=== PATIENT | female | born 1990 | race Caucasian/White ===

== ENCOUNTER 2016-05-27 09:55 | Emergency (ER) | payer MEDICAID ==
[2016-05-27 11:08] VITALS: BP 154/71
== END 2016-05-27 11:08 | disposition home or self-care (01) ==
LOC: ED 09:55
DX: L03.115 Cellulitis of right lower limb (principal); L30.4 Erythema intertrigo

== ENCOUNTER 2016-05-31 22:07 | Emergency (ER) | payer MEDICAID ==
[2016-06-01 00:10] VITALS: BP 168/121
== END 2016-06-01 00:10 | disposition left against medical advice (07) ==
LOC: ED 22:07
DX: Z53.21 Procedure and treatment not carried out due to patient leaving prior to being seen by health care provider (principal)

== ENCOUNTER 2016-09-10 12:10 | Emergency (ER) | payer MEDICAID ==
[2016-09-10 12:24] VITALS: BP 156/95
== END 2016-09-10 13:01 | disposition home or self-care (01) ==
LOC: ED 12:10
DX: L03.112 Cellulitis of left axilla (principal); E78.00 Pure hypercholesterolemia, unspecified; E11.9 Type 2 diabetes mellitus without complications

== ENCOUNTER 2016-11-06 12:20 | Emergency (ER) | payer MEDICAID ==
[~2016-11-06] VITALS: Ht 162.6 cm; Wt 134.8 kg
[2016-11-06 13:51] VITALS: BP 153/91
== END 2016-11-06 13:51 | disposition home or self-care (01) ==
LOC: ED 12:20
DX: N64.4 Mastodynia (principal); E66.01 Morbid (severe) obesity due to excess calories